=== PATIENT | male | born 2000 | race Caucasian/White ===

== ENCOUNTER 2019-01-14 19:42 | Emergency (ER) | payer OTHER ==
[~2019-01-14] VITALS: Ht 188 cm; Wt 122.7 kg
[2019-01-14] MEDS ORDERED: PERTUSS(ACELL),DIPH,TET VAC/PF 0.5 ML VIAL IM ONE (21:30)
[2019-01-14 22:08] VITALS: BP 123/78
== END 2019-01-14 22:20 | disposition home or self-care (01) ==
LOC: EMS 19:46
DX: S61.411A Laceration without foreign body of right hand, initial encounter (principal); S00.12XA Contusion of left eyelid and periocular area, initial encounter; V00.131A Fall from skateboard, initial encounter; Y93.51 Activity, roller skating (inline) and skateboarding; Y92.89 Other specified places as the place of occurrence of the external cause; Y99.8 Other external cause status
CPT/HCPCS: 90471; 90715